=== PATIENT | female | born 1975 | race Caucasian/White ===

== ENCOUNTER 2022-06-11 20:48 | Inpatient (IN) | payer MEDICAID, OTHER ==
[~2022-06-11] VITALS: Ht 162.6 cm; Wt 95.7 kg
[2022-06-11] MEDS ORDERED: VANCOMYCIN 1G PREMIX 200 ML IV ONE (21:30)
[2022-06-11] MEDS ORDERED: PIPERACILLIN/TAZ 3.375G PREMIX 50 ML IV ONE (21:30)
[2022-06-11] MEDS ORDERED: SODIUM CHLORIDE 0.9% 1000ML BAG (SEPSIS BOLUS) IV ONE (21:30)
[2022-06-11 22:09] LABS: CHLORIDE 98 mEq/L (98-107); HCG SCREEN NEGATIVE
[2022-06-11 22:14] LABS: HEMOGLOBIN. 12.8 g/dL (12.0-16.0); MEAN CORPUSCULAR HEMOGLOBIN 29.3 pg (28.0-32.0); MEAN CORPUSCULAR VOLUME 85.1 fL (81.0-99.0); MEAN PLATELET VOLUME 11.7 fl (7.4-10.4); RED BLOOD CELL COUNT 4.35 mill/uL (4.2-5.4)
[2022-06-11 22:24] LABS: PLATELET 23 x1000/uL (130-400)
[2022-06-11 22:26] LABS: PLATELET ESTIMATE MARKEDLY DECREASED
[2022-06-12] MEDS ORDERED: SODIUM CHLORIDE 0.9% 1,000 ML IV ONE (00:30)
[2022-06-12 02:28] LABS: CLARITY URINE CLOUDY (CLEAR); COLOR URINE DARK YELLOW (YELLOW); KETONES URINE TRACE (NEGATIVE); LEUKOCYTE ESTERASE URINE NEGATIVE (NEGATIVE); NITRITE URINE POSITIVE (NEGATIVE); OCCULT BLOOD URINE TRACE (NEGATIVE); PROTEIN URINE 1+ (NEGATIVE)
[2022-06-12] MEDS ORDERED: LEVOFLOXACIN 500MG PREMIX 100 ML IV SCH ×2 (08:00→09:00)
[2022-06-12] MEDS ORDERED: ONDANSETRON HCL 4MG/2ML INJ IV PRN (08:00)
[2022-06-12] MEDS ORDERED: METRONIDAZOLE 500 MG PREMIX 100 ML IV SCH (08:00)
[2022-06-12] MEDS ORDERED: NALOXONE HCL 0.4MG/ML VIAL IV PRN (08:30)
[2022-06-12] MEDS: DEXT 5%/0.45% NACL 1000ML 1,000 ML IV SCH ×2 (08:46→21:36)
[2022-06-12] MEDS ORDERED: POTASSIUM CHLORIDE 20MEQ TABLET SR PO SCH (09:00)
[2022-06-12 12:00] VITALS: BP 114/64
[2022-06-12 12:27] VITALS: BP 114/64
[2022-06-12] MEDS: METRONIDAZOLE 500 MG PREMIX 100 ML IV SCH ×2 (15:19→21:36)
[2022-06-12 16:00] VITALS: BP 127/64
[2022-06-12] MEDS: HYDROCODONE/ACETAMINOPHEN 5/325MG TABLET PO PRN (19:48)
[2022-06-12 20:00] VITALS: BP 109/58
[2022-06-13] VITALS (7 sets, daily range): BP systolic 111–130; BP diastolic 58–71
[2022-06-13] MEDS: HYDROCODONE/ACETAMINOPHEN 5/325MG TABLET PO PRN ×4 (01:48→20:33)
[2022-06-13] MEDS: METRONIDAZOLE 500 MG PREMIX 100 ML IV SCH ×3 (05:23→21:52)
[2022-06-13 06:18] LABS: CHLORIDE 102 mEq/L (98-107)
[2022-06-13 06:22] LABS: BASOPHILS % 0.4 % (0.0-2.0); EOSINOPHILS % 1.3 % (0.0-5.0); HEMATOCRIT. 31.2 % (36.0-48.0); HEMOGLOBIN. 10.9 g/dL (12.0-16.0); LYMPHOCYTES % 8.7 % (20.0-50.0); MEAN CORPUSCULAR HEMOGLOBIN 29.8 pg (28.0-32.0); MEAN CORPUSCULAR VOLUME 85.4 fL (81.0-99.0); MEAN PLATELET VOLUME 11.5 fl (7.4-10.4); MONOCYTES % 7.3 % (2.0-8.0); NEUTROPHILS % 82.3 % (40.0-76.0); RED BLOOD CELL COUNT 3.65 mill/uL (4.2-5.4); RED CELL DISTRIBUTION WIDTH 14.6 % (11.6-14.6)
[2022-06-13] MEDS ORDERED: POTASSIUM CHLORIDE INJ 60 MEQ in DEXT 5% WATER 250 ML IV ONE (06:45)
[2022-06-13 06:54] LABS: PLATELET 29 x1000/uL (130-400)
[2022-06-13] MEDS: KCL 20MEQ/100ML X 3 FOR TOTAL KCL 60MEQ/300ML IV SCH ×3 (09:33→15:11)
[2022-06-13] MEDS ORDERED: LEVOFLOXACIN 250MG PREMIX 50 ML IV SCH ×2 (11:00)
[2022-06-13] MEDS: DEXT 5%/0.45% NACL 1000ML 1,000 ML IV SCH (15:12)
[2022-06-13] MEDS ORDERED: VANCOMYCIN 1,750 MG in DEXT 5% WATER 500 ML IV NR (22:00)
[2022-06-14] VITALS: BP 100/79
[2022-06-14] MEDS: DEXT 5%/0.45% NACL 1000ML 1,000 ML IV SCH ×2 (00:28→14:55)
[2022-06-14] MEDS: HYDROCODONE/ACETAMINOPHEN 5/325MG TABLET PO PRN ×3 (03:29→17:32)
[2022-06-14 04:00] VITALS: BP 91/43
[2022-06-14] MEDS: METRONIDAZOLE 500 MG PREMIX 100 ML IV SCH ×3 (05:16→22:56)
[2022-06-14 08:00] VITALS: BP 100/52
[2022-06-14] MEDS: VANCOMYCIN 1,000 MG in DEXT 5% WATER 250 ML IV SCH ×2 (09:57→20:54)
[2022-06-14] MEDS ORDERED: POTASSIUM CHLORIDE 20MEQ TABLET SR PO NR (10:00)
[2022-06-14 11:27] LABS: BASOPHILS % 0.1 % (0.0-2.0); EOSINOPHILS % 1.3 % (0.0-5.0); HEMOGLOBIN. 10.7 g/dL (12.0-16.0); LYMPHOCYTES % 8.8 % (20.0-50.0); MEAN CORPUSCULAR HEMOGLOBIN 29.3 pg (28.0-32.0); MEAN PLATELET VOLUME 10.6 fl (7.4-10.4); MONOCYTES % 7.8 % (2.0-8.0); PLATELET 63 x1000/uL (130-400); RED BLOOD CELL COUNT 3.64 mill/uL (4.2-5.4); RED CELL DISTRIBUTION WIDTH 14.7 % (11.6-14.6)
[2022-06-14 12:00] VITALS: BP 120/60
[2022-06-14] MEDS: LEVOFLOXACIN 500MG PREMIX 100 ML IV SCH (14:55)
[2022-06-14 16:00] VITALS: BP 112/62
[2022-06-14] MEDS: POTASSIUM CHLORIDE 20MEQ TABLET SR PO SCH (17:23)
[2022-06-14] MEDS ORDERED: POTASSIUM CHLORIDE INJ 40 MEQ in DEXT 5% WATER 500 ML IV NR (18:00)
[2022-06-14 20:00] VITALS: BP 102/53
[2022-06-14] MEDS: ACETAMINOPHEN 325MG TABLET PO PRN (20:54)
[2022-06-15] VITALS: BP 96/50
[2022-06-15] MEDS: DEXT 5%/0.45% NACL 1000ML 1,000 ML IV SCH ×2 (02:55→17:20)
[2022-06-15 04:00] VITALS: BP 108/56
[2022-06-15] MEDS: HYDROCODONE/ACETAMINOPHEN 5/325MG TABLET PO PRN ×4 (04:06→23:00)
[2022-06-15] MEDS: METRONIDAZOLE 500 MG PREMIX 100 ML IV SCH ×3 (05:27→21:04)
[2022-06-15 07:38] LABS: BASOPHILS % 0.4 % (0.0-2.0); EOSINOPHILS % 2.2 % (0.0-5.0); HEMATOCRIT. 30.4 % (36.0-48.0); HEMOGLOBIN. 10.4 g/dL (12.0-16.0); LYMPHOCYTES % 14.1 % (20.0-50.0); MEAN CORPUSCULAR HEMOGLOBIN 29.2 pg (28.0-32.0); MEAN CORPUSCULAR VOLUME 85.8 fL (81.0-99.0); MONOCYTES % 7.3 % (2.0-8.0); PLATELET 96 x1000/uL (130-400); RED BLOOD CELL COUNT 3.55 mill/uL (4.2-5.4); RED CELL DISTRIBUTION WIDTH 14.7 % (11.6-14.6)
[2022-06-15 07:50] LABS: CHLORIDE 101 mEq/L (98-107)
[2022-06-15 08:00] VITALS: BP 114/58
[2022-06-15] MEDS: VANCOMYCIN 750MG PREMIX 150 ML IV SCH ×2 (10:10→17:19)
[2022-06-15] MEDS: POTASSIUM CHLORIDE 20MEQ TABLET SR PO SCH (10:10)
[2022-06-15] MEDS: LEVOFLOXACIN 500MG PREMIX 100 ML IV SCH (10:11)
[2022-06-15] MEDS ORDERED: DIATR MEGLU/DIATRIZOATE SOLN 30ML PO SCH (11:30)
[2022-06-15 12:00] VITALS: BP 117/61
[2022-06-15 16:00] VITALS: BP 115/59
[2022-06-15 20:00] VITALS: BP 113/51
[2022-06-16] VITALS: BP 109/57
[2022-06-16] MEDS: VANCOMYCIN 750MG PREMIX 150 ML IV SCH ×2 (02:31→10:51)
[2022-06-16 04:00] VITALS: BP 120/64
[2022-06-16] MEDS: METRONIDAZOLE 500 MG PREMIX 100 ML IV SCH ×3 (05:52→21:34)
[2022-06-16] MEDS: HYDROCODONE/ACETAMINOPHEN 5/325MG TABLET PO PRN ×3 (05:56→20:36)
[2022-06-16] MEDS: DEXT 5%/0.45% NACL 1000ML 1,000 ML IV SCH ×2 (06:22→19:40)
[2022-06-16 06:39] LABS: BASOPHILS % 0.3 % (0.0-2.0); EOSINOPHILS % 1.8 % (0.0-5.0); HEMATOCRIT. 29.9 % (36.0-48.0); HEMOGLOBIN. 10.4 g/dL (12.0-16.0); LYMPHOCYTES % 13.4 % (20.0-50.0); MEAN CORPUSCULAR HEMOGLOBIN 29.8 pg (28.0-32.0); MEAN CORPUSCULAR VOLUME 85.5 fL (81.0-99.0); MEAN PLATELET VOLUME 9.5 fl (7.4-10.4); MONOCYTES % 7.5 % (2.0-8.0); PLATELET 175 x1000/uL (130-400); RED BLOOD CELL COUNT 3.49 mill/uL (4.2-5.4); RED CELL DISTRIBUTION WIDTH 14.7 % (11.6-14.6)
[2022-06-16 06:49] LABS: CHLORIDE 100 mEq/L (98-107)
[2022-06-16 08:00] VITALS: BP 119/63
[2022-06-16] MEDS ORDERED: DIATR MEGLU/DIATRIZOATE SOLN 30ML PO SCH (08:15)
[2022-06-16] MEDS: POTASSIUM CHLORIDE 20MEQ TABLET SR PO SCH (08:33)
[2022-06-16] MEDS: LEVOFLOXACIN 500MG PREMIX 100 ML IV SCH (11:02)
[2022-06-16] MEDS ORDERED: CEFTRIAXONE 2 G PREMIX 50 ML IV SCH (11:15)
[2022-06-16 12:00] VITALS: BP 127/70
[2022-06-16] MEDS: CEFTRIAXONE 2 G in DEXTROSE 5% WATER 50 ML IV SCH (13:30)
[2022-06-16 16:00] VITALS: BP 114/64
[2022-06-16 20:00] VITALS: BP 116/63
[2022-06-17] VITALS: BP 121/69
[2022-06-17] MEDS: ACETAMINOPHEN 325MG TABLET PO PRN ×3 (03:55→19:19)
[2022-06-17 04:00] VITALS: BP 113/54
[2022-06-17] MEDS: METRONIDAZOLE 500 MG PREMIX 100 ML IV SCH ×3 (05:07→21:27)
[2022-06-17 08:00] VITALS: BP 129/68
[2022-06-17] MEDS: POTASSIUM CHLORIDE 20MEQ TABLET SR PO SCH (08:53)
[2022-06-17 12:00] VITALS: BP 135/75
[2022-06-17] MEDS: DEXT 5%/0.45% NACL 1000ML 1,000 ML IV SCH ×2 (12:02→21:28)
[2022-06-17] MEDS: CEFTRIAXONE 2 G in DEXTROSE 5% WATER 50 ML IV SCH (12:02)
[2022-06-17 12:37] LABS: CHLORIDE 104 mEq/L (98-107)
[2022-06-17 14:38] LABS: BASOPHILS % 0.7 % (0.0-2.0); EOSINOPHILS % 1.1 % (0.0-5.0); HEMATOCRIT. 30.8 % (36.0-48.0); HEMOGLOBIN. 10.3 g/dL (12.0-16.0); LYMPHOCYTES % 21.9 % (20.0-50.0); MEAN CORPUSCULAR HEMOGLOBIN 29.4 pg (28.0-32.0); MEAN CORPUSCULAR VOLUME 87.5 fL (81.0-99.0); MEAN PLATELET VOLUME 9.6 fl (7.4-10.4); MONOCYTES % 6.8 % (2.0-8.0); NEUTROPHILS % 69.5 % (40.0-76.0); PLATELET 288 x1000/uL (130-400); RED BLOOD CELL COUNT 3.51 mill/uL (4.2-5.4); RED CELL DISTRIBUTION WIDTH 15.1 % (11.6-14.6)
[2022-06-17 16:00] VITALS: BP 128/62
[2022-06-17] MEDS ORDERED: AMOX1TAB16 MT (16:17)
[2022-06-17 20:00] VITALS: BP 116/63
[2022-06-18] MEDS: ACETAMINOPHEN 325MG TABLET PO PRN (05:43)
[2022-06-18 08:00] VITALS: BP 125/53
[2022-06-18] MEDS: POTASSIUM CHLORIDE 20MEQ TABLET SR PO SCH (08:27)
[2022-06-18] MEDS: DEXT 5%/0.45% NACL 1000ML 1,000 ML IV SCH (11:40)
[2022-06-18] MEDS: CEFTRIAXONE 2 G in DEXTROSE 5% WATER 50 ML IV SCH (11:54)
[2022-06-18 12:00] VITALS: BP 128/56
[2022-06-18 12:02] VITALS: BP 128/56
== END 2022-06-18 13:45 | disposition home or self-care (01) | DRG 720 ==
LOC: ER 20:48 → MICUSO 06-12 03:19 → 7WST 06-12 11:18
PROVIDERS: ADMIT Internal Medicine; ATTEND Internal Medicine
DX: A41.9 Sepsis, unspecified organism (principal); N17.0 Acute kidney failure with tubular necrosis; R65.21 Severe sepsis with septic shock; E43 Unspecified severe protein-calorie malnutrition; D69.6 Thrombocytopenia, unspecified; K76.0 Fatty (change of) liver, not elsewhere classified; K57.32 Diverticulitis of large intestine without perforation or abscess without bleeding; Z20.822 Contact with and (suspected) exposure to COVID-19; N12 Tubulo-interstitial nephritis, not specified as acute or chronic; K80.20 Calculus of gallbladder without cholecystitis without obstruction; E66.9 Obesity, unspecified; E87.6 Hypokalemia; E80.6 Other disorders of bilirubin metabolism; Z68.36 Body mass index [BMI] 36.0-36.9, adult; R74.01 Elevation of levels of liver transaminase levels
CPT/HCPCS: 36415; 71045; 74176; 74181; 76700; 80048; 80053; 80076; 80202; 81003; 83605; 83735; 84132; 84145; 84484; 84703; 85025; 87426; 93005; 93306; 99291; J0696; J1956; J2543; J3370; J3480; J3490; J7030; J7042; J7060; Q9963